=== PATIENT | female | born 1990 | race Caucasian/White ===

== ENCOUNTER → 2016-08-29 | Outpatient (CLI) | payer OTHER ==
[~2016-08-29] MED LIST: BCPILLS PO; ONDA4TAB7 SL; POTASSIUM OTC PO
== END | disposition home or self-care (01) ==
LOC: C.LABSPEC 11:06
PROVIDERS: ATTEND Family Medicine
DX: N90.89 Other specified noninflammatory disorders of vulva and perineum (principal)

== ENCOUNTER → 2016-09-05 | Outpatient (CLI) | payer OTHER | END | disposition home or self-care (01) | LOC: C.LABSPEC 17:22 | PROVIDERS: ATTEND Obstetrics & Gynecology | DX: L08.9 Local infection of the skin and subcutaneous tissue, unspecified (principal) ==

== ENCOUNTER → 2016-11-06 | Outpatient (CLI) | payer OTHER ==
[2016-11-06 10:17] LABS: BLOOD UREA NITROGEN 13 mg/dl (7-18); BUN/CREATININE RATIO 14.5 (10-20); CALCIUM 8.8 mg/dl (8.5-10.1); CARBON DIOXIDE 25 mmol/L (21-32); CHLORIDE 104 mmol/L (98-107); CHOLESTEROL 191 mg/dl (0-200); CREATININE 0.88 mg/dl (0.60-1.20); GLUCOSE 90 mg/dl (70-99); POTASSIUM 3.9 mmol/L (3.5-5.1); SODIUM 138 mmol/L (136-145)
[2016-11-06 10:28] LABS: CHOLESTEROL/HDL RATIO 3.7; HDL CHOLESTEROL 51 mg/dl; LDL CHOLESTEROL CALCULATED 100 mg/dl; TRIGLYCERIDES 201 mg/dl (0-150); VERY LOW DENSITY LIPOPROT CALC 40 mg/dl
== END | disposition home or self-care (01) ==
LOC: C.LAB 06:48
PROVIDERS: ATTEND Family Medicine
DX: K21.9 Gastro-esophageal reflux disease without esophagitis (principal); F41.8 Other specified anxiety disorders; E03.9 Hypothyroidism, unspecified; E78.1 Pure hyperglyceridemia

== ENCOUNTER → 2017-03-05 | Outpatient (CLI) | payer OTHER ==
[2017-03-05 17:25] LABS: THYROID STIMULATING HORMONE 1.87 uIu/ml (0.300-4.500)
== END | disposition home or self-care (01) ==
LOC: C.LAB 15:46
PROVIDERS: ATTEND Family Medicine
DX: E03.9 Hypothyroidism, unspecified (principal)

== ENCOUNTER → 2017-06-03 | Outpatient (CLI) | payer OTHER ==
[2017-06-03 15:56] LABS: ESTIMATED AVERAGE GLUCOSE 88 mg/dl; HA1C FLAG Normal (Normal)
== END | disposition home or self-care (01) ==
LOC: C.LAB 11:39
PROVIDERS: ATTEND Family Medicine
DX: F41.8 Other specified anxiety disorders (principal); Z68.38 Body mass index [BMI] 38.0-38.9, adult

== ENCOUNTER → 2017-07-16 | Outpatient (CLI) | payer OTHER ==
[2017-07-17 13:30] LABS: EBV EARLY ANTIGEN AB < 9.00 U/ML
== END | disposition home or self-care (01) ==
LOC: C.LAB 09:58
PROVIDERS: ATTEND Nurse Practitioner Family
DX: J02.9 Acute pharyngitis, unspecified (principal)

== ENCOUNTER → 2018-02-13 | Outpatient (CLI) | payer OTHER | END | disposition home or self-care (01) | LOC: C.LABSPEC 17:01 | PROVIDERS: ATTEND Family Medicine | DX: R39.9 Unspecified symptoms and signs involving the genitourinary system (principal) ==

== ENCOUNTER → 2018-03-03 | Outpatient (CLI) | payer OTHER | END | disposition home or self-care (01) | LOC: C.PAPS 11:18 | PROVIDERS: ATTEND Family Medicine | DX: Z12.4 Encounter for screening for malignant neoplasm of cervix (principal) ==

== ENCOUNTER → 2018-03-05 | Outpatient (CLI) | payer OTHER | END | disposition home or self-care (01) | LOC: C.LAB 11:58 | PROVIDERS: ATTEND Family Medicine | DX: E66.9 Obesity, unspecified (principal) ==

== ENCOUNTER 2023-03-28 06:12 | Inpatient (IN) ==
--- NOTE | 2023-03-20 16:01 | Anesthesiology Consultation ---
Date of Service March 20, 2023 Assessment & Plan (1) Encounter for pre-operative examination: Chart Review Chart Review: data entry technician initiated - Fetus currently in breech position - BSG to anesthesiologist and OB discretion (pt with gestational DM) -Infectious Disease screening: Per PAT nursing assessment on 03/20/23. No known infectious disease contacts in past 10 days or current infectious disease symptoms. No recent travel outside the country. Patient seen by cardiology clinic 12/18/2022 = patient seen for personal history of spontaneously closed septation defect by history. Current has been largely uncomplicated. echocardiogram is normal with no evidence of major congenital heart disease, myocardial dysfunction, rhythm disturbances, pericardial effusion or other acute cardiovascular concerns. No contraindications to delivering at [facility] as she is planning. Pediatric cardiology team can be consulted at any time if concern for fetus cardiovascular status occurs. No need to follow in cardiology clinic at this time nor do I see any need for imaging of infant. History Surgery Operation Date: 03/28/23 08:15 Proposed Procedures p Section (Delivery of Baby Through Abdominal Incision) - Deep Oliver MD Height/Weight Height: 5 ft 2 in Weight: 136.078 kg Allergies Allergy/AdvReac Type Severity Reaction Status Date / Time sumatriptan Allergy Anaphylaxis Verified 03/20/23 15:03 Medications Home Medications Medication Instructions Recorded Confirmed Last Taken cholecalciferol (vitamin D3) 50 50 mcg PO QAM 03/21/21 03/20/23 12/26/21 06:00 mcg (2,000 unit) capsule prenat.vits,geraldo,vtj-mfrg-yimck 1 tab PO QAM 08/20/22 03/20/23 Unknown cetirizine 10 mg tablet 10 mg PO DAILY PRN allergy 08/28/22 03/20/23 Unknown symptoms #30 tabs fluticasone propionate 50 1 spray intranasal Q12H #16 grams 08/28/22 03/20/23 Unknown mcg/actuation nasal spray,suspension ondansetron HCl 4 mg tablet 4 mg PO Q6H PRN nausea and 09/18/22 03/20/23 Unknown vomiting #30 tabs famotidine 40 mg tablet 40 mg PO BID acid reflux #180 tabs 12/06/22 03/20/23 Unknown ferrous sulfate 325 mg (65 mg 325 mg PO BID #60 tabs 01/14/23 03/20/23 Unknown iron) tablet acetone (urine) test (Ketone Urine #50 ea 01/31/23 03/15/23 Unknown Test strips) blood sugar diagnostic (OneTouch #150 ea 01/31/23 03/15/23 Unknown Verio test strips) blood-glucose meter (OneTouch #1 ea 01/31/23 03/15/23 Unknown Verio Reflect Meter) lancets 33 gauge #150 ea 01/31/23 03/15/23 Unknown aspirin 81 mg tablet,delayed 81 mg PO QAM 03/20/23 03/20/23 Unknown release (Adult Low Dose Aspirin) clindamycin phosphate 1 % lotion 1 applic topical BID PRN boils 03/20/23 03/20/23 Unknown fluoxetine 40 mg capsule 40 mg PO QAM 03/20/23 03/20/23 Unknown levothyroxine 50 mcg tablet 50 mcg PO QAM 03/20/23 03/20/23 Unknown liothyronine 5 mcg tablet 5 mcg PO QAM Hypothyroidism 03/20/23 03/20/23 Unknown omeprazole 20 mg capsule,delayed 20 mg PO QAM 03/20/23 03/20/23 Unknown release triamcinolone acetonide 0.1 % 1 appln topical BID PRN boils 03/20/23 03/20/23 Unknown topical cream Past Medical History Medical History (Updated 03/20/23 @ 16:00 by Maryana Rodriguez PA-C) Acid reflux disease controlled, stable per pt Allergic rhinitis Depression with anxiety Gestational diabetes Controlled per patient Hidradenitis Boil of the groin I&D in PCP office 02/19/23- patient treated with cephalexin afterwards x 7-10 days History of chicken pox Hyperhidrosis Hypertriglyceridemia Hypothyroidism Low iron Sleep apnea cpap-"uses only once in awhile" Temporomandibular joint dysfunction occ. locking, last episode a few yrs ago Past Family History Family History Mother , age 24 Motor vehicle accident Grandmother (Paternal) , 07/2020 COPD (chronic obstructive pulmonary disease) Diabetes Father Known health problems: none Brother No problems noted. Denies family history of Colon cancer Ovarian cancer Prostate cancer Myocardial infarction Breast cancer Past Surgical History Surgical History Hx of removal of cyst labial cyst S/P wisdom tooth extraction Social History Smoking Status: Never smoker Do You Dip or Chew Tobacco: No Hx Alcohol Use: Yes (hx-occasionally, but not during ) Alcohol type: wine alcohol intake frequency: holidays/special occasions only Hx Substance Use: No substance use type: does not use Lab Results Anesthesia Preop Results Results Anesthesia Widget: WBC 8.73 K/ul (4.8-10.8) 02/08/23 Hgb 10.0 g/dl (12.0-16.0) L 03/08/23 Hct 29.9 % (37.0-47.0) L 03/08/23 Plt 181 K/uL (130-400) 02/08/23 Na 134 mmol/L (136-145) L 02/08/23 K 4.1 mmol/L (3.5-5.1) 02/08/23 Cl 104 mmol/L (98-107) 02/08/23 CO2 24 mmol/L (21-32) 02/08/23 BUN 9 mg/dl (6-23) 02/08/23 Creat 0.60 mg/dl (0.6-1.2) 02/08/23 Glucose Level 101 mg/dl (70-99(Fasting)) H 02/08/23 TSH 1.188 uIu/ml (0.300-4.500) 03/08/23 Testing Laboratory Results 02/15/23= URINE CULTURE: More than 3 types of organisms present, all moderate counts mixed probable skin makenna
[~2023-03-28 06:12] MED LIST changes: -BCPILLS PO; +CITRIC ACID/SODIUM CITRATE 15 ML UDC PO SCH; +LACTATED RINGER'S 1,000 ML IV SCH; -ONDA4TAB7 SL; -POTASSIUM OTC PO; +ceFAZolin 3,000 MG in DEXTROSE 5% 50 ML IV SCH
[2023-03-28] MEDS ORDERED: SODIUM CHLORIDE 0.9% 250 ML IV PRN (06:17)
[2023-03-28 06:54] LABS: Hematocrit (blood only) 29.3 % (37.0-47.0); Hemoglobin 10.1 g/dl (12.0-16.0); Mean Corpuscular Hemoglobin 31.2 pg (25.0-34.0); Mean Corpuscular Hgb Conc 34.5 g/dL (32.0-36.0); Mean Corpuscular Volume 90.4 fL (80.0-100.0); Mean Platelet Volume 10.9 fL (9.4-12.4); Platelet Count 197 K/uL (130-400); RDW Coefficient of Variation 15.3 % (11.5-14.5); RDW Standard Deviation 50.6 fL (36.4-46.3); Red Blood Count 3.24 M/uL (4.20-5.40); White Blood Count 10.08 K/ul (4.8-10.8)
--- NOTE | 2023-03-28 07:25 | History & Physical Report ---
Date of Service March 28, 2023 Assessment & Plan (1) Elevated blood pressure reading without diagnosis of hypertension: (2) Hypothyroid in , antepartum: (3) Obesity affecting , antepartum: (4) Need for rhogam due to Rh negative mother: (5) Gestational diabetes: (6) Breech presentation: Plan 33yo G1 [id number] GA present for pLTCS for breech presentation. 1. Fetus: Cat 1 2. Delivery: pLTCS for breech 3. GBS positive 4. Vitals: Elevated BPs but denies symptoms. BP likely elevated due to anxiety. Will continue to monitor. Admission and Anticipated Discharge Date Admission Date: March 28, 2023 History of Present Illness Primary Care Provider: Swathi Mckeon MD 33yo g1 at 39w3d GA presents for pLTCS for breech presentation. Elevated BPs this AM but denies PIH symptoms. complicated by: Obesity (BMI 40 and higher @ beginning of ) *Growth US @ 32wks *Weekly NSTs @ 34wks *BMI 40 or greater offer detailed/level II anatomy at [facility] *BMI 50 or greater scheduled detailed/level II anatomy at [facility] Hypothyroid *Check TFTs Q4wks Pt "born with hole in my heart" -plan [place] [place] ech normal Need for Rhogam due to RH Negative Mother Rhogam given 01/09/23 - [place] Anemia recheck H&H 4 weeks ~ 02/08/23 Gestational Diabetes growth u/s's q 4 weeks GBS Positive *Treat in labor OB Labs: Blood Type O Negative 08/22/22 Antibody Screen NEGATIVE 01/09/23 Hemoglobin 10.0 g/dl (12.0-16.0) L 03/08/23 Hematocrit 29.9 % (37.0-47.0) L 03/08/23 Mean Corpuscular Volume 90.2 fL (80.0-100.0) 02/08/23 Platelet Count 181 K/uL (130-400) 02/08/23 Rubella IgG Antibody Immune (Immune) 08/22/22 Rapid Plasma Reagin Nonreactive (Nonreactive) 08/22/22 Hepatitis B Surface Antigen. NON-REACTIVE (NON-REACTIVE) 08/22/22 Hepatitis C Antibody (EIA) NON-REACTIVE (NON-REACTIVE) 08/22/22 HIV (1&2) Ag and Ab Confirmation NON-REACTIVE (NON-REACTIVE) 08/22/22 Glucose 1 Hour 50 gm Load 147 mg/dl (70-130) H 10/15/22 OB Optional Labs: Chlamydia trachomatis RNA Not Detected (NotDetected) 08/22/22 Neisseria gonorrhoeae RNA Not Detected (NotDetected) 08/22/22 Thyroid Stimulating Hormone (TSH) 1.188 uIu/ml (0.300-4.500) 03/08/23 Labs Reviewed: cf/sma-negative--mln cfdna-low risk--mln Allergies Allergy/AdvReac Type Severity Reaction Status Date / Time sumatriptan Allergy Anaphylaxis Verified 03/27/23 14:17 Home Medications Medication Instructions Recorded Confirmed Type cholecalciferol (vitamin D3) 50 50 mcg PO QAM 03/21/21 03/27/23 History mcg (2,000 unit) capsule prenat.vits,geraldo,cij-svsz-ognxq 1 tab PO QAM 08/20/22 03/27/23 History cetirizine 10 mg tablet 10 mg PO DAILY PRN allergy 08/28/22 03/27/23 Rx symptoms #30 tabs fluticasone propionate 50 1 spray intranasal Q12H #16 grams 08/28/22 03/27/23 Rx mcg/actuation nasal spray,suspension ondansetron HCl 4 mg tablet 4 mg PO Q6H PRN nausea and 09/18/22 03/27/23 Rx vomiting #30 tabs famotidine 40 mg tablet 40 mg PO BID acid reflux #180 tabs 12/06/22 03/27/23 Rx ferrous sulfate 325 mg (65 mg 325 mg PO BID #60 tabs 01/14/23 03/27/23 Rx iron) tablet acetone (urine) test (Ketone Urine #50 ea 01/31/23 03/27/23 Rx Test strips) blood sugar diagnostic (OneTouch #150 ea 01/31/23 03/27/23 Rx Verio test strips) blood-glucose meter (OneTouch #1 ea 01/31/23 03/27/23 Rx Verio Reflect Meter) lancets 33 gauge #150 ea 01/31/23 03/27/23 Rx aspirin 81 mg tablet,delayed 81 mg PO QAM 03/20/23 03/27/23 History release (Adult Low Dose Aspirin) clindamycin phosphate 1 % lotion 1 applic topical BID PRN boils 03/20/23 03/27/23 History fluoxetine 40 mg capsule 40 mg PO QAM 03/20/23 03/27/23 History levothyroxine 50 mcg tablet 50 mcg PO QAM 03/20/23 03/27/23 History liothyronine 5 mcg tablet 5 mcg PO QAM Hypothyroidism 03/20/23 03/27/23 History omeprazole 20 mg capsule,delayed 20 mg PO QAM 03/20/23 03/27/23 History release triamcinolone acetonide 0.1 % 1 appln topical BID PRN boils 03/20/23 03/27/23 History topical cream Patient History Medical History (Updated 03/20/23 @ 16:00 by Maryana Rodriguez PA-C) Acid reflux disease controlled, stable per pt Allergic rhinitis Depression with anxiety Gestational diabetes Controlled per patient Hidradenitis Boil of the groin I&D in PCP office 02/19/23- patient treated with cephalexin afterwards x 7-10 days History of chicken pox Hyperhidrosis Hypertriglyceridemia Hypothyroidism Low iron Sleep apnea cpap-"uses only once in awhile" Temporomandibular joint dysfunction occ. locking, last episode a few yrs ago Surgical History Hx of removal of cyst labial cyst S/P wisdom tooth extraction Family History Mother , age 24 Motor vehicle accident Grandmother (Paternal) , 07/2020 COPD (chronic obstructive pulmonary disease) Diabetes Father Known health problems: none Brother No problems noted. Denies family history of Colon cancer Ovarian cancer Prostate cancer Myocardial infarction Breast cancer Social History Smoking Status: Never smoker Second Hand Exposure: Yes (hx growing up); Do You Dip or Chew Tobacco: No; Tobacco Cessation Education Requested by Patient: No Hx Alcohol Use: Yes (hx-occasionally, but not during ) Alcohol type: wine Hx Substance Use: No Preferred Language: Welsh Communication Ability: Effective Visual Impairment: No Limitations Hearing Ability: Normal Survey Statistician Required: No Beliefs That Will Affect Care: None marital status: Single marital status details: ai Cristiano Olga(28) [phone] Current Living Situation: Significant Other Current Living Situation Comment: Cristiano Espinoza- AI; Crystal Jayleen- [place] Mother current occupational status: employed 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 [employer] Other Information That Helps Us Care for You: No Feels Safe at Home: Yes Safety Concerns: Feels Safe At This Time Childhood Exposure to Second-Hand Smoke: No Diet: regular Diet Comment: regular caffeine: Yes during the past year weight has: increased > 10 lbs Dental Care, Regularly: Yes Physical Activity Frequency: 1-2 Times per Week Seatbelt Use: always Sunscreen Use: Yes Assistive Devices: None Assistive Devices Comment: glasses prn Physical Exam Constitutional: WD/WN, vitals as above Psychiatric: A+Ox3, euthymic affect Results & Data Vital Signs (Past 12 Hours) Vital Signs Temp Pulse Resp BP 03/28/23 07:15 93 H 173/93 H 03/28/23 07:04 96 H 168/103 H 03/28/23 06:55 37.1 C 90 18 164/99 H 03/28/23 06:54 91 H 172/95 H 03/28/23 06:43 93 H 171/102 H Coding Level of Care Code None Diagnoses Elevated blood pressure reading without diagnosis of hypertension R03.0 Hypothyroid in , antepartum O99.280; E03.9 Obesity affecting , antepartum O99.210 Need for rhogam due to Rh negative mother Z29.13 Gestational diabetes O24.419 Breech presentation O32.1XX0
[2023-03-28] MEDS ORDERED: MoRPHine SULFATE PF 1 MG/ML 10 ML AMP/VIAL ONE (08:10)
[2023-03-28 08:39] LABS: Albumin Globulin Ratio 1.1 (0.9-2); Albumin Level 3.3 gm/dl (3.4-5.0); BUN Creatinine Ratio 16.7 (10-20); Bilirubin,Total 0.3 mg/dl (0.2-1.0); Calcium 8.6 mg/dl (8.6-10.3); Creatinine Clr Calc Pharmacy 179.2 ml/min; Est GFR (African American) 139.8 ml/min; Est GFR (Non-African American) 120.6 ml/min; Globulin 3.1 gm/dl (2.5-4.0); Potassium 4.1 mmol/L (3.5-5.1); Total Protein 6.4 gm/dl (6.0-8.3)
[2023-03-28] MEDS ORDERED: MoRPHine SULFATE PF 1 MG/ML 10 ML AMP/VIAL INT SPINAL ONE (08:55)
[2023-03-28] MEDS ORDERED: NALOXONE HCL 1 MG in SODIUM CHLORIDE 0.9% 1,000 ML IV PRN (08:55)
[2023-03-28] MEDS ORDERED: ePHEDrine sulfate 50 MG/ML AMP IV PRN (08:55)
[2023-03-28] MEDS ORDERED: MoRPHine SULFATE 2 MG/ML CARP IV PRN (08:55)
[2023-03-28] MEDS ORDERED: NALBUPHINE HCL INJ 10 MG/ML AMP IV PRN (08:55)
[2023-03-28] MEDS ORDERED: ONDANSETRON INJ 2 MG/ML 2 ML VIAL IV PRN (08:55)
[2023-03-28] MEDS ORDERED: NALOXONE HCL 0.4 MG/1 ML VIAL/CARP IV PRN (08:55)
[2023-03-28] MEDS ORDERED: LACTATED RINGER'S 500 ML IV PRN (08:55)
[2023-03-28] MEDS ORDERED: diphenhydrAMINE 50 MG/ML VIAL IV PRN ×2 (08:55→09:45)
[2023-03-28] MEDS ORDERED: PROMETHAZINE HCL 12.5 MG in SODIUM CHLORIDE 0.9% 50 ML IV PRN (08:55)
[2023-03-28] MEDS ORDERED: NALOXONE HCL 0.08 MG in SYRINGE 1.8 ML IV PRN (08:55)
[2023-03-28] MEDS ORDERED: METOCLOPRAMIDE HCL INJ 5 MG/ML 2 ML VIAL ONE (08:57)
[2023-03-28] MEDS ORDERED: SUCCINYLCHOLINE CHLORIDE 20 MG/ML 10 ML VIAL IV ONE (08:57)
[2023-03-28] MEDS ORDERED: ePHEDrine sulfate 50 MG/5 ML SYR ONE (08:57)
[2023-03-28] MEDS ORDERED: ONDANSETRON INJ 2 MG/ML 2 ML VIAL ONE (08:57)
[2023-03-28] MEDS ORDERED: PHENYLEPHRINE HCL 10 MG/ML VIAL ONE (08:57)
[2023-03-28] MEDS ORDERED: OXYTOCIN 10 UNITS/ML VIAL ONE (08:58)
[2023-03-28] MEDS ORDERED: NO NARCOTICS OR SEDATIVES SCH (09:00)
[2023-03-28] MEDS ORDERED: SODIUM CHLORIDE 0.9% 1,000 ML IV SCH (09:00)
[2023-03-28] MEDS ORDERED: DC INTRASPINAL MORPHINE SCH (09:00)
--- NOTE | 2023-03-28 09:44 | Post Operative Brief Note ---
PG Immediate Post Op with CF Date of Surgery March 28, 2023 Pre & Post Diagnosis Operation Date: 03/28/23 08:15 Pre-Op Diagnosis: 1. 33yo G1 [id number] GA present for pLTCS for breech presentation. Post-Op Diagnosis: Same I identified the patient and participated in the time-out.: Yes Procedure Operation Date: 03/28/23 08:15 Actual Procedures p Section in LD with live of female at 0902.(Bilateral) - Deep Oliver MD Surgeon Deep Oliver MD Cupola Repairer Dr. Watson Estimated Blood Loss 500 Findings Consistent with Post-Op Diagnosis Specimens Specimen Description: A: Placenta (Hold) B: Cord Blood Drains Navarro Catheter (navarro inserted after spinal placed. draining clear, yellow urine at this time. anesthesia to monitor urine output intraoperatively.) OB Procedure charges OB Charges 00945
[2023-03-28] MEDS ORDERED: HYDROCORTISONE ACETATE 25 MG SUPP PR PRN (09:45)
[2023-03-28] MEDS ORDERED: BENZOCAINE 20% SPRY 85 APPLN/85 GM CAN EXT PRN (09:45)
[2023-03-28] MEDS ORDERED: SENNA 8.6 MG TAB PO PRN (09:45)
[2023-03-28] MEDS ORDERED: DIPHTHERIA/TETANUS/PERTUSSIS Vaccine (Tdap, Age 7+yrs) 0.5mL SYR/VL IM ONE (09:45)
[2023-03-28] MEDS ORDERED: MAGNESIUM HYDROXIDE SUSP 30 ML UDC PO PRN (09:45)
[2023-03-28] MEDS ORDERED: diphenhydrAMINE Capsule 25 MG CAP PO PRN (09:45)
--- NOTE | 2023-03-28 10:10 | Operative Report ---
PG Post Operative Report Pre & Post Diagnosis Operation Date: 03/28/23 08:15 Pre-Op Diagnosis: 1. 33yo G1 [id number] GA present for pLTCS for breech presentation. Post-Op Diagnosis: Same I identified the patient and participated in the time-out.: Yes Procedure Operation Date: 03/28/23 08:15 Actual Procedures p Section in LD with live of female at 0902.(Bilateral) - Deep Oliver MD Surgeon Deep Oliver MD Corporate Safety Manager Dr. Watson Estimated Blood Loss 500 Findings Consistent with Post-Op Diagnosis Specimens None Description of Procedure The patient was taken to the operating room after consents were ensured. Upon presentation, she was properly identified. Spinal anesthesia was obtained without difficulty. The patient was then prepped and draped in normal sterile fashion. Preprocedural timeout was performed. A Pfannenstiel incision was then made with a knife at the prior location. This was carried down to underlying fascia with the Bovie. The fascia was nicked at the midline with a knife and extended laterally with pickups and Saucedo scissors. The superior aspect of the fascia was grasped with Kochers x2, elevated off the underlying rectus muscles with blunt dissection and Saucedo scissors. Inferior aspect of the fascia was grasped with Kochers x2, elevated off the underlying rectus muscles using blunt dissection. The midline was then entered bluntly, placed on stretch to provide adequate room for delivery. A low transverse uterine incision was then made with a knife. The uterine cavity and amniotic cavity entered bluntly, placed on stretch to provide adequate room for delivery. Baby was noted to be in breech presentation and the bottom was delivered, the legs were swept in an internal rotation to delivery. Delivery continue until shoulder level and the arm were swipt in an internal rotation for delivery. head delivered with out difficulty. Cord was double clamped and cut and taken of the awaiting nursery staff for evaluation. Cord blood was obtained. Attention was then turned to delivery of the placenta, which was delivered intact, 3-vessel cord, with gentle cord traction and uterine massage. The uterus was then exteriorized, wrapped in a wet lap and several passes were made, removing any remaining membranes with a dry lap. The hysterotomy was then reapproximated with 0 Vicryl continuous running locked stitch. A second imbricating layer was performed. The hysterotomy was then reinspected and hemostasis was noted. The uterus was then returned to the maternal abdomen. The muscles, subcutaneous and fascial layers were inspected to be hemostatic.The facia was reapproximated with 0 Vicryl in continuous stitch. The subcutaneous layers were reapproximated with 2-0 plain and continuous running stitch in 2 layers. The skin was reapproximated with 3-0 Vicryl with a subcuticular stitch. Needle, sponge, and instrument counts were correct at the completion of the case. Both mother and stable in the immediate post-delivery period I attest to the content of the Intraoperative Record and any orders documented therein. Any exceptions are noted below.
[2023-03-28 11:06] LABS: Total Protein Urine Random 71.9 mg/dl (0-11.9)
[2023-03-28 11:11] LABS: Creatinine Urine Random 153.2 mg/dl; Protein Creatinine Ratio Urine 0.5 (0-0.2)
[2023-03-28] MEDS: OXYTOCIN 20 UNITS in LACTATED RINGER'S 1,000 ML IV SCH ×2 (12:00→20:34)
--- NOTE | 2023-03-28 12:11 | Anesthesiology Progress Note ---
Date of Service March 28, 2023 Anesthesia Post Procedure Vital Signs Vital Signs: Temp Pulse Resp BP Pulse Ox 03/28/23 11:20 20 03/28/23 10:50 20 03/28/23 10:40 20 03/28/23 10:30 20 03/28/23 10:20 20 03/28/23 10:10 20 03/28/23 10:00 20 03/28/23 09:50 36.6 C 20 03/28/23 12:04 102 H 95 03/28/23 12:02 51 L 139/61 03/28/23 11:59 98 H 96 03/28/23 11:54 95 H 95 03/28/23 11:52 91 H 141/63 H 03/28/23 11:49 102 H 97 03/28/23 11:44 100 H 96 03/28/23 11:42 97 H 144/70 H 03/28/23 11:39 104 H 95 03/28/23 11:34 108 H 96 03/28/23 11:32 99 H 151/71 H 03/28/23 11:29 103 H 95 03/28/23 11:24 101 H 97 03/28/23 11:22 98 H 148/70 H 03/28/23 11:19 99 H 95 03/28/23 11:14 102 H 94 03/28/23 11:12 100 H 142/69 H 03/28/23 11:09 102 H 96 03/28/23 11:04 104 H 95 03/28/23 11:02 102 H 125/87 03/28/23 10:59 100 H 94 03/28/23 10:54 95 H 97 03/28/23 10:52 100 H 112/59 L 03/28/23 10:49 98 H 96 03/28/23 10:44 99 H 97 03/28/23 10:42 95 H 130/85 03/28/23 10:39 96 H 96 03/28/23 10:38 103 H 91 03/28/23 10:34 104 H 96 03/28/23 10:29 100 H 93 03/28/23 10:24 91 H 96 03/28/23 10:22 85 131/91 03/28/23 10:19 90 97 03/28/23 10:14 96 H 97 03/28/23 10:12 107 H 137/75 03/28/23 10:09 94 H 96 03/28/23 10:04 87 97 03/28/23 10:03 93 H 91 03/28/23 10:02 87 130/75 03/28/23 09:59 88 97 03/28/23 09:56 85 92 03/28/23 09:54 81 96 03/28/23 09:51 87 94 03/28/23 09:49 91 H 96 03/28/23 09:50 89 152/71 H 03/28/23 08:16 86 169/88 H 03/28/23 07:26 92 H 167/99 H 03/28/23 07:15 93 H 173/93 H 03/28/23 07:04 96 H 168/103 H 03/28/23 06:55 37.1 C 90 18 164/99 H 03/28/23 06:54 91 H 172/95 H 03/28/23 06:43 93 H 171/102 H Transfer of Care Handoff Completed per policy Notes Mental Status: alert / awake / arousable Patient Amnestic to Procedure: Yes Nausea / Vomiting: adequately controlled Pain: adequately controlled Airway Patency, RR, SpO2: stable & adequate BP & HR: stable & adequate Hydration State: stable & adequate Neuraxial Anesthesia: was administered and sensory block is resolving Anesthetic Complications: no major complications apparent
[2023-03-28] MEDS: KETOROLAC 30 MG/ML VIAL IV PRN ×2 (12:20→20:33)
[2023-03-28] MEDS: SIMETHICONE 80 MG CHEW PO SCH ×3 (15:52→20:34)
[2023-03-28] MEDS: LACTATED RINGER'S 1,000 ML IV SCH ×2 (15:52→18:28)
[2023-03-28] MEDS ORDERED: LACTATED RINGER'S 1,000 ML IV ONE (17:40)
[2023-03-28] MEDS: DOCUSATE SODIUM 100 MG CAP PO SCH (20:33)
[2023-03-29] MEDS: KETOROLAC 30 MG/ML VIAL IV PRN (02:26)
[2023-03-29] MEDS ORDERED: ONDANSETRON INJ 2 MG/ML 2 ML VIAL IV PRN (02:55)
[2023-03-29] MEDS ORDERED: PROMETHAZINE HCL 25 MG in SODIUM CHLORIDE 0.9% 50 ML IV PRN (02:55)
[2023-03-29] MEDS ORDERED: KETOROLAC 30 MG/ML VIAL IV PRN (02:55)
[2023-03-29 06:42] LABS: Basophils # (auto) 0.03 K/uL (0.00-0.20); Basophils % (auto) 0.4 %; Eosinophils # (auto) 0.07 K/uL (0.00-0.50); Eosinophils % (auto) 0.9 %; Hematocrit (blood only) 25.1 % (37.0-47.0); Hemoglobin 8.6 g/dl (12.0-16.0); Immature Granulocytes # (auto) 0.04 K/uL (0.01-0.20); Immature Granulocytes % (auto) 0.5 %; Lymphocytes # (auto) 1.07 K/uL (1.20-3.40); Lymphocytes % (auto) 13.9 %; Mean Corpuscular Hemoglobin 31.2 pg (25.0-34.0); Mean Corpuscular Hgb Conc 34.3 g/dL (32.0-36.0); Mean Corpuscular Volume 90.9 fL (80.0-100.0); Mean Platelet Volume 10.9 fL (9.4-12.4); Monocytes # (auto) 0.64 K/uL (0.11-0.59); Monocytes % (auto) 8.3 %; Neutrophils # (auto) 5.84 K/uL (1.40-6.50); Platelet Count 169 K/uL (130-400); RDW Coefficient of Variation 15.6 % (11.5-14.5); RDW Standard Deviation 51.1 fL (36.4-46.3); Red Blood Count 2.76 M/uL (4.20-5.40); White Blood Count 7.69 K/ul (4.8-10.8)
--- NOTE | 2023-03-29 06:47 | Obstetrical Progress Note ---
Date of Service <Huan Estrada DO - Last Filed: 03/29/23 06:53> March 29, 2023 Assessment & Plan <Huan Estrada DO - Last Filed: 03/29/23 06:53> (1) S/P section: (2) Elevated blood pressure reading without diagnosis of hypertension: Plan Post-op day 1 s/p Vital signs reviewed and significant for elevated blood pressure, most recent 156/100 Pt feels well today, eating, voiding, and ambulating well Pain well controlled with Toradol Routine post-op care - OOB, ambulation, diet progression as tolerated After discharge, will have 6 week follow-up with Dr. Oliver. <Deep Oliver MD - Last Filed: 04/01/23 09:06> (1) S/P section: (2) Elevated blood pressure reading without diagnosis of hypertension: Subjective <Huan Estrada DO - Last Filed: 03/29/23 06:53> Ambulation: ambulating normally Voiding: no voiding problems Passing Gas:: Yes (no bowel movement since ) Diet Tolerance:: regular diet Lochia:: Small Feeding Type:: breast feeding Pain well controlled with Toradol Review of Systems -Denies fever or chills -Denies dyspnea, chest pain, or palpitations -Denies breast pain -Denies dysuria -Denies headache or changes in vision Physical Exam <Huan Estrada DO - Last Filed: 03/29/23 06:53> General: Alert and oriented. No acute distress Cardiac: Regular rate and rhythm, no murmurs appreciated Respiratory: Lungs clear to auscultation bilaterally, No increased work of breathing Abdominal: Soft, non-tender, non-distended. Bowel sounds present. Uterus: Uterine fundus firm, palpable below umbilicus Integumentary: Incision site with clean dressing, minimal serosanguineous drainage Extremities: No lower extremity edema, calves non-tender bilaterally Results & Data <Huan Estrada DO - Last Filed: 03/29/23 06:53> Vital Signs (Past 12 Hours) Vital Signs Temp Pulse Resp BP Pulse Ox O2 Del Method 03/29/23 03:55 36.8 C 97 H 18 156/100 H 97 Room Air 03/29/23 02:42 20 97 03/28/23 23:30 20 98 03/28/23 22:30 18 98 03/28/23 21:30 16 98 03/29/23 01:06 18 97 03/29/23 00:10 37.1 C 97 H 18 156/100 H 98 Room Air 03/29/23 00:10 16 98 03/28/23 20:35 Room Air 03/28/23 20:35 20 99 03/28/23 20:44 36.9 C 90 20 154/102 H 99 Room Air <Deep Oliver MD - Last Filed: 04/01/23 09:06> Co-Signing Physician Notes Patient seen with resident and agree with the above findings and plan. Routine OB care Resident Activity Tracking <Huan Estrada DO - Last Filed: 03/29/23 06:53> Resident Involvement: Resident Care Provided Care Provided: OB Delivery
[2023-03-29] MEDS: IBUPROFEN 600 MG TAB PO PRN ×4 (08:15→22:48)
[2023-03-29] MEDS: SIMETHICONE 80 MG CHEW PO SCH ×4 (08:16→20:37)
[2023-03-29] MEDS: FERROUS SULFATE 325 MG TAB PO SCH (08:16)
[2023-03-29] MEDS: PRENATAL VITAMIN 1 TAB PO SCH (08:16)
[2023-03-29] MEDS: oxyCODONE/ACETAMINOPHEN 5mg/325mg TAB PO PRN ×4 (08:16→22:48)
[2023-03-29] MEDS: DOCUSATE SODIUM 100 MG CAP PO SCH ×2 (08:16→20:37)
[2023-03-29] MEDS: LEVOTHYROXINE SODIUM 50 MCG TABLET PO SCH (08:17)
[2023-03-29] MEDS: NIFEdipine EXTENDED REL 30 MG TABCR PO SCH (10:34)
[2023-03-29] MEDS: MICONAZOLE NITRATE POWDER 85 GM EXT SCH ×2 (10:35→21:11)
[2023-03-29] MEDS ORDERED: bisacodyL 5 MG TABEC PO SCH (20:00)
[2023-03-30] MEDS: oxyCODONE/ACETAMINOPHEN 5mg/325mg TAB PO PRN ×4 (04:07→20:27)
[2023-03-30] MEDS: IBUPROFEN 600 MG TAB PO PRN ×4 (04:07→20:27)
[2023-03-30 06:29] LABS: Hematocrit (blood only) 24.5 % (37.0-47.0); Hemoglobin 8.1 g/dl (12.0-16.0)
[2023-03-30] MEDS: LEVOTHYROXINE SODIUM 50 MCG TABLET PO SCH (06:37)
--- NOTE | 2023-03-30 06:42 | Obstetrical Progress Note ---
Date of Service <Huan Estrada DO - Last Filed: 03/30/23 07:49> March 30, 2023 Assessment & Plan <Huan Estrada DO - Last Filed: 03/30/23 07:49> (1) S/P section: (2) Elevated blood pressure reading without diagnosis of hypertension: Plan Post-op day 2 s/p Vital signs reviewed and significant for elevated blood pressure, most recent 145/85 Continue Procardia XL for BP control Pt feels well today, eating, voiding, and ambulating well Pain well controlled with Percocet and Motrin Routine post-op care - OOB, ambulation, diet progression as tolerated After discharge, will have 6 week follow-up with Dr. Oliver. <Nargis Lawrence MD, FACOG - Last Filed: 03/30/23 08:14> (1) S/P section: (2) Elevated blood pressure reading without diagnosis of hypertension: Subjective <Huan Estrada - Last Filed: 03/30/23 07:49> Ambulation: ambulating normally Voiding: no voiding problems Passing Gas:: Yes (no bowel movement since ) Lochia:: Small Feeding Type:: breast feeding Pain well controlled with Percocet and Motrin Review of Systems -Denies fever or chills -Denies dyspnea, chest pain, or palpitations -Denies breast pain -Denies dysuria -Denies headache or changes in vision Physical Exam <Huan Estrada DO - Last Filed: 03/30/23 07:49> General: Alert and oriented. No acute distress Cardiac: Regular rate and rhythm, no murmurs appreciated Respiratory: Lungs clear to auscultation bilaterally, No increased work of breathing Abdominal: Soft, non-tender, non-distended. Bowel sounds present. Uterus: Uterine fundus firm, palpable below umbilicus Extremities: No lower extremity edema, calves non-tender bilaterally <Nargis Lawrence MD, FACOG - Last Filed: 03/30/23 08:14> Gastrointestinal (Abdomen) incision dry and intact, no cellulitis Results & Data <Huan Estrada - Last Filed: 03/30/23 07:49> Vital Signs (Past 12 Hours) Vital Signs Temp Pulse Resp BP Pulse Ox O2 Del Method 03/30/23 02:55 145/85 H 03/29/23 23:00 36.8 C 105 H 18 150/97 H 98 Room Air 03/29/23 19:45 Room Air 03/29/23 19:45 36.8 C 100 H 18 141/90 H 98 Room Air <Nargis Lawrence MD, FACOG - Last Filed: 03/30/23 08:14> Co-Signing Physician Notes Resident Physician Supervision Note: I interviewed and examined the patient. Discussed with Dr. Estrada and agree with findings and plan as documented in the note. Any exceptions or clarifications are listed here: [None] Documented By: Nargis Lawrence MD, FACOG Resident Activity Tracking <Huan Estrada DO - Last Filed: 03/30/23 07:49> Resident Involvement: Resident Care Provided Care Provided: OB Delivery
[2023-03-30] MEDS: MICONAZOLE NITRATE POWDER 85 GM EXT SCH ×2 (08:30→20:40)
[2023-03-30] MEDS: SIMETHICONE 80 MG CHEW PO SCH ×4 (08:48→20:27)
[2023-03-30] MEDS: PRENATAL VITAMIN 1 TAB PO SCH (08:49)
[2023-03-30] MEDS: FERROUS SULFATE 325 MG TAB PO SCH (08:49)
[2023-03-30] MEDS: DOCUSATE SODIUM 100 MG CAP PO SCH ×2 (08:49→20:27)
[2023-03-30] MEDS: NIFEdipine EXTENDED REL 30 MG TABCR PO SCH (08:52)
[2023-03-30] MEDS ORDERED: bisacodyL 10 MG SUPP PR PRN (09:45)
[2023-03-31] MEDS: oxyCODONE/ACETAMINOPHEN 5mg/325mg TAB PO PRN ×3 (01:53→13:25)
[2023-03-31] MEDS: IBUPROFEN 600 MG TAB PO PRN ×3 (01:54→13:25)
[2023-03-31] MEDS: LEVOTHYROXINE SODIUM 50 MCG TABLET PO SCH (07:05)
[2023-03-31] MEDS: DOCUSATE SODIUM 100 MG CAP PO SCH (07:50)
[2023-03-31] MEDS: PRENATAL VITAMIN 1 TAB PO SCH (07:50)
[2023-03-31] MEDS: FERROUS SULFATE 325 MG TAB PO SCH (07:50)
[2023-03-31] MEDS: SIMETHICONE 80 MG CHEW PO SCH ×2 (07:50→13:25)
[2023-03-31] MEDS: NIFEdipine EXTENDED REL 30 MG TABCR PO SCH (07:51)
[2023-03-31] MEDS: MICONAZOLE NITRATE POWDER 85 GM EXT SCH (07:53)
[2023-03-31] MEDS ORDERED: NIFEdipine EXTENDED REL 30 MG TABCR PO STA (09:45)
--- NOTE | 2023-03-31 09:48 | Obstetrical Progress Note ---
Date of Service March 31, 2023 Assessment & Plan (1) S/P section: POD#3 doing well. BPs have remained elevated - will increase to Procardia XL 60mg daily, by giving a 2nd dose of 30mg. Patient agrees with plan - as long as BPs are improved throughout the afternoon, will plan for DC home later today with plans to follow up in office for BP check within the next week. She has Rx 30mg tablets, will plan to take 2 tabs per day for total dose 60mg unless otherwise directed. Reviewed instructions. DC today if BPs improve. Subjective Ambulation: ambulating normally Voiding: no voiding problems Diet Tolerance:: regular diet Lochia:: Moderate Review of Systems All systems reviewed & are unremarkable except as noted in HPI & below Physical Exam Constitutional WD/WN, vitals as above no acute distress Respiratory normal respiratory effort Cardiovascular Rate/Rhythm: regular rate and regular rhythm Gastrointestinal (Abdomen) Inspection/Auscultation: abdomen normal to inspection; abdomen not distended Percussion/Palpation: abdomen soft Genitourinary OB Exam Abdomen: + fundal height Fundus: + firm; not tender Results & Data Vital Signs (Past 12 Hours) Vital Signs Temp Pulse Resp BP BP Pulse Ox O2 Del Method 03/31/23 09:02 36.8 C 98 H 18 160/101 H 150/95 H 98 03/31/23 07:45 36.8 C 98 H 18 150/95 H Room Air 03/31/23 01:49 145/88 H 03/30/23 23:59 105 H 138/93 03/30/23 23:21 36.8 C 101 H 20 160/101 H 98 Room Air
--- NOTE | 2023-04-03 12:39 | Discharge Summary ---
Date of Service April 03, 2023 Admission HPI Per Admitting Provider 33yo g1 at 39w3d [place] presents for pLTCS for breech presentation. Elevated BPs this AM but denies PIH symptoms. 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" -plan [place] [place] normal Need for Rhogam due to RH Negative Mother Rhogam given 01/09/23 - [place] Anemia recheck H&H 4 weeks ~ 02/08/23 Gestational Diabetes growth u/s's q 4 weeks GBS Positive *Treat in labor OB Labs: Blood Type O Negative 08/22/22 Antibody Screen NEGATIVE 01/09/23 Hemoglobin 10.0 g/dl (12.0-16.0) L 03/08/23 Hematocrit 29.9 % (37.0-47.0) L 03/08/23 Mean Corpuscular Volume 90.2 fL (80.0-100.0) 02/08/23 Platelet Count 181 K/uL (130-400) 02/08/23 Rubella IgG Antibody Immune (Immune) 08/22/22 Rapid Plasma Reagin Nonreactive (Nonreactive) 08/22/22 Hepatitis B Surface Antigen. NON-REACTIVE (NON-REACTIVE) 08/22/22 Hepatitis C Antibody (EIA) NON-REACTIVE (NON-REACTIVE) 08/22/22 HIV (1&2) Ag and Ab Confirmation NON-REACTIVE (NON-REACTIVE) 08/22/22 Glucose 1 Hour 50 gm Load 147 mg/dl (70-130) H 10/15/22 OB Optional Labs: Chlamydia trachomatis RNA Not Detected (NotDetected) 08/22/22 Neisseria gonorrhoeae RNA Not Detected (NotDetected) 08/22/22 Thyroid Stimulating Hormone (TSH) 1.188 uIu/ml (0.300-4.500) 03/08/23 Labs Reviewed: cf/sma-negative--mln cfdna-low risk--mln Discharge Data Consultations 03/28/23 06:12 Consult Anesthesiology Stat Procedures Performed Operation Date: 03/28/23 08:15 Actual Procedures p Section in LD with live of female at 0902.(Bilateral) - Deep Oliver MD Hospital Course (1) S/P section: (2) Elevated blood pressure reading without diagnosis of hypertension: Plan Post-op day 1 s/p Vital signs reviewed and significant for elevated blood pressure, most recent 156/100 Pt feels well today, eating, voiding, and ambulating well Pain well controlled with Toradol Routine post-op care - OOB, ambulation, diet progression as tolerated After discharge, will have 6 week follow-up with Dr. Oliver. Coding Level of Care Code None Diagnoses S/P section Z98.891 Elevated blood pressure reading without diagnosis of hypertension R03.0
== END 2023-03-31 15:15 | disposition home or self-care (01) | DRG 788 ==
LOC: 4S1 06:12 → EDSTATUS 09:00 → 4E2 12:40
DX: Z3A.39 39 weeks gestation of pregnancy; E03.9 Hypothyroidism, unspecified; D64.9 Anemia, unspecified; O99.214 Obesity complicating childbirth; Z29.13 Encounter for prophylactic Rho(D) immune globulin; O24.429 Gestational diabetes mellitus in childbirth, unspecified control; O32.1XX0 Maternal care for breech presentation, not applicable or unspecified; O99.284 Endocrine, nutritional and metabolic diseases complicating childbirth; O99.02 Anemia complicating childbirth; Z37.0 Single live birth